=== PATIENT | female | born 1965 | race Caucasian/White ===

== ENCOUNTER 2017-04-09 08:45 | Inpatient (IN) | payer BC ==
[2017-04-07 16:12] VITALS: BMI 46.5
[2017-04-09] MEDS ORDERED: MIDAZOLAM HCL 2 MG/2 ML SINGLE DOSE VIAL ONE (09:52)
[2017-04-09] MEDS ORDERED: BUPIVACAINE HCL/PF 0.5% (5MG/ML) 10 ML VIAL ONE (10:16)
[2017-04-09] MEDS ORDERED: PROPOFOL 20 ML ONE (10:43)
[2017-04-09] MEDS ORDERED: ROCURONIUM BROMIDE 50 MG/5 ML VIAL ONE ×2 (10:43→10:44)
[2017-04-09] MEDS ORDERED: fentaNYL CITRATE 250 MCG/5 ML VIAL ONE (10:43)
[2017-04-09] MEDS ORDERED: KETOROLAC TROMETHAMINE 30 MG/1 ML VIAL ONE (10:44)
[2017-04-09] MEDS ORDERED: SUCCINYLCHOLINE CHLORIDE 200 MG/10 ML VIAL ONE (10:44)
[2017-04-09] MEDS ORDERED: ceFAZolin SODIUM 1 GM VIAL ONE ×2 (10:44)
[2017-04-09] MEDS ORDERED: DEXAMETHASONE SOD PHOSPHATE 4 MG/1 ML VIAL ONE ×2 (10:45→13:29)
[2017-04-09] MEDS ORDERED: ceFAZolin SODIUM 1 GM VIAL IVPB ONE (10:52)
[2017-04-09] MEDS ORDERED: HYDROmorphone HCL/PF 1 MG/ML VIAL (FOR PYXIS CHARGING ONLY) ONE (13:01)
[2017-04-09] MEDS ORDERED: BUPIVACAINE HCL/PF 0.5% (5MG/ML) 10 ML VIAL IJ ONE (13:42)
--- NOTE | 2017-04-09 13:54 | OP ---
Operative Note - Note: Operative Date: 04/09/17 Pre-Operative Diagnosis: Evaluate for leak/obstruction after vertical sleeve gastrectomy Operation: Upper endoscopy/EGD Post-Operative Diagnosis: Other (No leak/obstruction) Surgeon: Jovany Valiente Anesthesia: General Specimens Removed: None Estimated Blood Loss (mls): 0 Operative Report Dictated: Yes
[2017-04-09] MEDS ORDERED: ONDANSETRON 4 MG/2 ML VIAL IVPUSH PRN (13:56)
--- NOTE | 2017-04-09 14:07 | OP ---
Operative Note - Note: Operative Date: 04/09/17 Pre-Operative Diagnosis: Morbid Obesity. Hypertension. Incisional Abdominal Wall Hernia Operation: Laparoscopic Vertical Sleeve Gastrectomy. Repair of Incisional Abdominal Wall Hermia with Mesh. Laparoscopic Lysis of Adhesions. Diagnostic Laparoscopy Findings: Greater Curve Sleeve Gastrectomy performed with #[address] Large 9cm X 6 cm Incisional hernia repaired in LUQ of Abdomen with mesh Implants: 12 cm Symbotex Mesh implanted into LUQ abdominal wall Post-Operative Diagnosis: Same as Pre-op (Abdominal adhesions) Surgeon: Matt Harris Refrigerating Engineer: Jovany Valiente Anesthesia: General Specimens Removed: Greater curve of stomach Estimated Blood Loss (mls): 50 Operative Report Dictated: Yes
[2017-04-09] MEDS ORDERED: HYDROmorphone HCL CARPU-JECT 2 MG/1 ML DISP.SYRIN ONE (14:12)
[2017-04-09] MEDS ORDERED: PROMETHAZINE HCL 25 MG/1 ML VIAL IVPUSH PRN (14:13)
[2017-04-09] MEDS: METOCLOPRAMIDE HCL INJECTION 10 MG/2 ML VIAL IVPUSH SCH ×2 (14:30→20:30)
[2017-04-09] MEDS: HYDROmorphone HCL CARPU-JECT 2 MG/1 ML DISP.SYRIN IVPUSH PRN ×4 (14:45→15:15)
[2017-04-09 14:48] LABS: HEMATOCRIT 39.3 % (32.4-45.2); HEMOGLOBIN 12.5 GM/dL (10.7-15.3); MCHC 31.7 g/dl (32.0-36.0); PLATELET COUNT 275 K/MM3 (134-434); RBC 4.62 M/mm3 (3.60-5.2); RDW 13.7 % (11.6-15.6); WHITE BLOOD COUNT 13.6 K/mm3 (4.0-10.0)
[2017-04-09] MEDS: SODIUM CHLORIDE 1,000 ML IV SCH (15:00)
[2017-04-09 15:32] LABS: ALBUMIN 3.3 g/dl (3.4-5.0); ANION GAP 7 (8-16); BLOOD UREA NITROGEN 11 mg/dL (7-18); CHLORIDE 107 mmol/L (98-107); CO2 25 mmol/L (21-32); GLUCOSE,RANDOM 132 mg/dL (74-106); POTASSIUM 4.3 mmol/L (3.5-5.1); SODIUM 139 mmol/L (136-145)
[2017-04-09 15:37] LABS: ALK PHOS 60 U/L (45-117); BILIRUBIN,TOTAL 0.2 mg/dL (0.2-1.0); CREATININE 0.8 mg/dL (0.55-1.02); SGOT/AST 18 U/L (15-37); SGPT/ALT 25 U/L (12-78); TOT PROT 6.7 g/dl (6.4-8.2)
[2017-04-09] MEDS: LACTATED RINGERS SOLUTION 1,000 ML IV SCH (17:43)
[2017-04-09] MEDS: HYDROmorphone HCL CARPU-JECT 2 MG/1 ML DISP.SYRIN IVPB PRN (20:24)
[2017-04-09] MEDS: ENOXAPARIN NA (PORCINE) 40 MG/0.4 ML DISP.SYRIN SQ SCH (21:49)
[2017-04-09] MEDS ORDERED: FAMOTIDINE 20 MG/50 ML IVPB 50 ML IVPB SCH (22:00)
[2017-04-09] MEDS: FAMOTIDINE IV 20 MG/12 ML VIAL IVPUSH SCH (22:48)
[2017-04-10] MEDS: HYDROmorphone HCL CARPU-JECT 2 MG/1 ML DISP.SYRIN IVPB PRN ×2 (01:51→09:13)
[2017-04-10] MEDS: METOCLOPRAMIDE HCL INJECTION 10 MG/2 ML VIAL IVPUSH SCH ×4 (02:00→21:01)
[2017-04-10] MEDS: SODIUM CHLORIDE 1,000 ML IV SCH ×2 (03:05→16:03)
[2017-04-10 07:50] LABS: HEMATOCRIT 34.7 % (32.4-45.2); HEMOGLOBIN 11.3 GM/dL (10.7-15.3); MCH 27.7 pg (25.7-33.7); MCHC 32.5 g/dl (32.0-36.0); MEAN CELL VOLUME 85.2 fl (80-96); PLATELET COUNT 254 K/MM3 (134-434); RBC 4.08 M/mm3 (3.60-5.2); WHITE BLOOD COUNT 9.9 K/mm3 (4.0-10.0)
[2017-04-10 08:49] LABS: ALBUMIN 2.9 g/dl (3.4-5.0); ANION GAP 7 (8-16); BLOOD UREA NITROGEN 10 mg/dL (7-18); CALCIUM 7.6 mg/dL (8.5-10.1); CHLORIDE 106 mmol/L (98-107); CO2 26 mmol/L (21-32); GLUCOSE,RANDOM 97 mg/dL (74-106); POTASSIUM 3.8 mmol/L (3.5-5.1); SODIUM 139 mmol/L (136-145)
[2017-04-10 08:56] LABS: ALK PHOS 54 U/L (45-117); BILIRUBIN,TOTAL 0.5 mg/dL (0.2-1.0); CREATININE 0.6 mg/dL (0.55-1.02); SGOT/AST 15 U/L (15-37); SGPT/ALT 22 U/L (12-78); TOT PROT 5.9 g/dl (6.4-8.2)
[2017-04-10] MEDS: ENOXAPARIN NA (PORCINE) 40 MG/0.4 ML DISP.SYRIN SQ SCH ×2 (09:25→21:02)
[2017-04-10] MEDS: FAMOTIDINE IV 20 MG/12 ML VIAL IVPUSH SCH ×2 (09:25→21:08)
--- NOTE | 2017-04-10 10:12 | OP ---
DATE OF OPERATION: 04/09/2017 SURGEON: Rossy Valiente MD PREOPERATIVE DIAGNOSIS: Intraoperative endoscopy requested by Dr. Harris to evaluate for leak/obstruction after a vertical sleeve gastrectomy. POSTOPERATIVE DIAGNOSIS: No leak, no obstruction. PROCEDURE: Upper endoscopy/esophagogastroduodenoscopy. SPECIMEN: None. ANESTHESIA: GET. REASONS/PROCEDURE: This is a 51-year-old female who is undergoing a vertical sleeve gastrectomy by Dr. Harris. A request for intraoperative endoscopy to evaluate for leak/obstruction was asked by Dr. Harris. The endoscope was inserted into the patients mouth. The entirety of the esophagus, GE junction, gastric staple line, and gastric pouch was inspected. No leak, no obstruction was noted. The staple line was noted to be fully intact. The stomach was suctioned, and the endoscope removed from the patients mouth. The remainder of the procedure was continued. Please see Dr. Larsen dictation for the vertical sleeve gastrectomy. ROSSY VALIENTE M.D. MUNA/[id number]
--- NOTE | 2017-04-10 10:52 | OP ---
DATE OF OPERATION: 04/09/2017 PREOPERATIVE DIAGNOSIS: 1. Morbid obesity. 2. Hypertension. 3. Incisional abdominal wall hernia. POSTOPERATIVE DIAGNOSIS: 1. Morbid obesity. 2. Hypertension. 3. Incisional abdominal wall hernia. 4. Abdominal adhesion. PROCEDURE PERFORMED: 1. Laparoscopic vertical sleeve gastrectomy. 2. Repair of incisional abdominal wall hernia. 3. Laparoscopic lysis of adhesions. 4. Diagnostic laparoscopy. OPERATING SURGEON: Marlo Duarte MD ASSORTER: Jovany Valiente MD ANESTHESIA: General. OPERATIVE PROCEDURE: The patient was brought into the operating room, placed on the OR table in the supine position. All precautions were taken initially including padding for the back and the feet, and Venodyne boots were placed on both lower extremities. At that point, the abdomen was prepped and draped in the usual manner. The patient had a moderate to large-size incisional hernia from previous surgery in the left upper quadrant. This is usually where the Veress needle would be placed. So, therefore, the Veress needle had to be placed to the right of the umbilicus. Once the Veress needle was placed into the abdomen, a pneumoperitoneum was established. A No. 5 bladeless trocar was then placed in that area just to the right of the umbilicus and one under direct vision in order to prevent any possible injury to intraabdominal organs. The No. 5 trocar was introduced under direct vision, and a camera was placed through the No. 5 trocar. Under direct vision, then, a No. 5 bladeless trocar was placed in the right upper quadrant. There was noted a large amount of adhesions, looked like omentum, in the area of the incisional hernia in the left upper quadrant. This needed to be dissected free, so that further visualization would be provided for the sleeve gastrectomy to be performed. Therefore, a No. 15 bladeless trocar was placed just below the umbilicus in the midline. Now with 2 working points and the camera, the LigaSure device was used to dissect the adhesions between the hernia, the hernia sac, and the omentum. These adhesions were lysed mostly right on the rim of the hernia sac in the left upper quadrant. This was done in a circumferential direction until all the adhesions were removed, and the omentum was then reduced from the hernia and placed back into the abdominal cavity. At this point, visualization showed nothing in the hernia sac. So, therefore, after sleeve gastrectomy, the hernia would be repaired at that time. Now, with full vision of the upper abdomen, a No. 5 bladeless trocar was placed below the left costal margin, and a No. 5 bladeless trocar in the left upper quadrant right by the hernia. At this juncture, a Lb Liver Retractor was then placed in the epigastrium to retract the left lobe of the liver. The patient was then placed in 20-degree reverse Trendelenburg position, and the pylorus was noted on the distal stomach. Then, 6 cm were measured proximally, and here on the greater curve, the operating surgeon lifted the stomach towards the anterior abdominal wall, and the economic research assistant surgeon retracted the gastrocolic ligament inferiorly. Once again, the LigaSure device was used to dissect the gastrocolic ligament off the greater curve of the stomach. This continued in a superior and vertical direction until a final short gastric vessel between the superior pole of the spleen and proximal fundus was divided. At this juncture, Anesthesia advanced a No. [address] into the distal stomach. With the bougie held along the lesser curve of the stomach, a series of argelia was performed, the first two being black argelia, 6 cm in length, along the bougie. This was followed by a series of purple argelia until the final staple was fired in the left upper quadrant, and the greater curve was now completely detached from the lesser curve. It should be noted that prior to firing each staple, both the anterior and posterior wall was checked that they intact and in the area of the esophagogastric junction. Approximately 1 cm serosa remained on the anterior and posterior surfaces. At this juncture, in order to test the argelia and make sure they were water- and air tight, the economic research assistant surgeon, Dr. Valiente, performed an upper endoscopy. The details will be described in his procedure note, but essentially, there were no signs of any leaks from the staple line, and the endoscopy was introduced all the way into the distal stomach towards the pylorus showing no signs of obstruction. At this juncture, Surgicel was placed over the left upper quadrant between spleen and the resected stomach and also along parts of the staple line. At this point, attention was now directed back to the hernia. A 12-cm circular Symbotex mesh was placed with the No. 15 trocar and then laid out over the hernia. A series of absorbable tacks were then placed all around, and this was able to hold the mesh in place. However, because there were some edges that were slightly off the fascia, it was decided to further reinforce it. Therefore, on all 4 sides, at 12 o'clock, 3 o'clock, 6 o'clock, and 9 o'clock, an 0 Prolene suture was placed with a spinal needle into the abdomen and then brought back up, and this was used to tie the mesh down to the fascia from above. At this point, all trocar sites were removed from the abdominal cavity, and the pneumoperitoneum was released. The No. 15 trocar just below the umbilicus, that site was closed with 0 Vicryl in 1 suture interrupted to close the midline fascia. At this point, all trocar sites received 0.25% Marcaine, were closed with 4-0 Biosyn in subcuticular fashion. Dressings were applied. Patient awoke from anesthesia and transferred out of the operating room to the recovery room in stable condition. ANESTHESIA: General. SURGEON: Marlo Duarte MD ASSORTER: Jovany Valiente MD EXPECTED BLOOD LOSS: 50 mL. Patient transferred to the recovery room in stable condition. MARLO DUARTE M.D. JASMINE/[id number]
--- NOTE | 2017-04-10 11:17 | CON.CARD ---
Consult Consult Specialty:: Cardiology Referred by:: Dr. Harris Reason for Consultation:: Chest pain - History of Present Illness Chief Complaint: chest pain History of Present Illness: 51F w/ HTN, HL, borderline DM, multpiple prior surgeries including tubal ligation, freida, left adrenal cystectomy, myomectomy, thyroidectomy c/p epigastric pain last evening s/p bariatric surgery and abdominal wall repair laparoscopically. ECG showed no acute changes. The discomfort feels like "gas" Denies SOB No palps. Usual ET is unlimited, except for her chronic PERALTA. Cardiac enzymes are negative x 2. - History Source History Provided By: Patient, Medical Record - Past Medical History Cardio/Vascular: Yes: HTN Pulmonary: No: Asthma, Bronchitis, Cancer, COPD, O2 Dependent, Pneumonia, Previously Intubated, Pulmonary Embolus, Pulmonary Fibrosis, Sleep Apnea, Other Gastrointestinal: No: Ascites, Cancer, Constipation, Crohn's Disease, Diverticulitis, Diverticulosis, Esophageal Varices, Gastritis, GERD, GI Bleed, Hemorrhoids, Hiatal Hernia, Inflamatory Bowel Disease, Irritable Bowel Disease, Pancreatitis, Peptic Ulcer Disease, Ulcerative Colitis, Other Hepatobiliary: No: Cirrhosis, Cholelithiasis, Cholecystitis, Choledocholithiasis , Hepatitis A, Hepatitis B, Hepatitis C, Other ...LMP: 04/07/17 Endocrine: Yes: Hypothyroidism Additional Medical History: as above - Alcohol/Substance Use Hx Alcohol Use: (rarely) - Smoking History Smoking history: Former smoker Have you smoked in the past 12 months: No If you are a former smoker, when did you quit?: 20 years ago - Social History Usual Living Arrangement: With Spouse 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 Home Medications - Allergies Allergies/Adverse Reactions: Allergies Allergy/AdvReac Type Severity Reaction Status Date / Time No Known Drug Allergies Allergy Verified 04/09/17 09:25 - Home Medications Home Medications: Ambulatory Orders Cholecalciferol (Vitamin D3) [Vitamin D-3] 2,000 unit PO DAILY 04/04/15 Cyanocobalamin [Vitamin B12 -] 2,000 mcg SL DAILY 04/04/15 Losartan Potassium [Cozaar -] 50 mg PO DAILY 04/04/15 Levothyroxine [Synthroid -] 50 mcg PO DAILY 04/07/17 Famotidine [Pepcid] 20 mg PO BID #60 tablet 04/09/17 Oxycodone HCl/Acetaminophen [Percocet 5-325 mg Tablet] 1 tab PO Q6H PRN #20 tablet MDD 4 04/09/17 Family Disease History - Family Disease History Family History: Unremarkable (mother had CHF, later in life) Review of Systems Findings/Remarks: SEE HPI - Review of Systems Constitutional: reports: No Symptoms Eyes: reports: No Symptoms HENT: reports: No Symptoms Neck: reports: No Symptoms Cardiovascular: reports: Other (epigastric and sternal pain) Respiratory: reports: No Symptoms Gastrointestinal: reports: Abdominal Pain, Bloating Genitourinary: reports: No Symptoms Breasts: reports: No Symptoms Reported Musculoskeletal: reports: No Symptoms Integumentary: reports: No Symptoms Neurological: reports: No Symptoms Endocrine: reports: No Symptoms Hematology/Lymphatic: reports: No Symptoms Psychiatric: reports: No Symptoms - Risk Factors Known Risk Factors: Yes: Hypertension Vital Signs: Vital Signs Temperature 98.4 F 04/10/17 08:00 Pulse Rate 96 H 04/10/17 08:00 Respiratory Rate 16 04/10/17 08:00 Blood Pressure 162/92 04/10/17 08:00 O2 Sat by Pulse Oximetry (%) 98 04/09/17 21:00 Constitutional: Yes: No Distress Eyes: Yes: Conjunctiva Clear Respiratory: Yes: Regular, CTA Bilaterally Gastrointestinal: Yes: Soft (no rebound or guarding) Cardiovascular: Yes: Regular Rate and Rhythm JVD: No Carotid Bruit: No PMI: Non-Displaced Heart Sounds: Yes: S1, S2 (RRR, no murmurs) Edema: No Peripheral Pulses WNL: Yes Neurological: Yes: Alert, Oriented ...Motor Strength: WNL - Other Data Labs, Other Data: CBC, BMP 04/10/17 06:30 04/10/17 05:05 Troponin, BNP 04/09/17 04/10/17 04/10/17 19:45 05:05 05:05 Troponin I < 0.02 < 0.02 Cancelled Troponin, BNP 04/09/17 04/10/17 04/10/17 19:45 05:05 05:05 Troponin I < 0.02 < 0.02 Cancelled Laboratory Tests 04/09/17 04/10/17 04/10/17 19:45 05:05 06:30 WBC 9.9 Hgb 11.3 Plt Count 254 Sodium 139 Potassium 3.8 Creatinine 0.6 D Troponin I < 0.02 < 0.02 NSR 84 bpm, NSST Echo: Pending Ejection Fraction %: LVEF > or = 40 % Imaging - Results EKG: Image Reviewed Problem List - Problems (1) Non-cardiac chest pain Assessment/Plan: -Do not suspect her chest discomfort was cardiac in nature -She is likely experiencing some degree of discomfort referred from the abdominal surgery and some tightness from the air from insufflation of abdomen -Cardiac enzymes are negative, no tachycardia , dyspnea or desaturation to suggest PE -Will obtain echo to assess EF Code(s): R07.89 - OTHER CHEST PAIN (2) Bariatric surgery status Assessment/Plan: -Post op care as per surgery Code(s): Z98.84 - BARIATRIC SURGERY STATUS (3) Hypertension Assessment/Plan: -At times mildly above goal, probably due to normal post op pain -Can resume usual home dose of Losartan 50mg daily when tolerating PO Code(s): I10 - ESSENTIAL (PRIMARY) HYPERTENSION Qualifiers: Hypertension type: essential hypertension Qualified Code(s): I10 - Essential (primary) hypertension
[2017-04-10] MEDS ORDERED: oxyCODONE HCL 5 MG TABLET PO PRN (14:20)
[2017-04-10] MEDS ORDERED: ACETAMINOPHEN 325 MG TABLET (FP) PO PRN (14:21)
[2017-04-10] MEDS ORDERED: SODIUM CHLORIDE 1,000 ML IV SCH (14:30)
--- NOTE | 2017-04-10 14:36 | PN ---
Progress Note (short form) - Note Progress Note: pt day #1 s/p gastric sleeve sx. Doing well, ambulating, some mild discomfort but otherwise fine. Continue current mgmt
[2017-04-10] MEDS: LEVOTHYROXINE NA 50 MCG TABLET (FP) PO SCH (15:30)
--- NOTE | 2017-04-10 15:58 | PN ---
Progress Note (short form) - Note Progress Note: POD#1 Afebrile; VSS Pt doing better Had epigastric discomfort yesterday Cardiology consultation appreciated Echo WNL Pt ambulating, c/o "gas" discomfort No N/V Tolerating PO clear liquids- 2 oz po tid WBC-9.9 H/H-11.3/34.7 P/E- Abd- all trocar sites clean, dry Ext- no edema, no swelling, no tenderness UGI- no leak, no obstruction P- PO clear liquids- 2oz po tid, advance to 3 oz tomorrow Cont DVT prophylaxis Encourage OOB, ambulate , incentive spirometer
[2017-04-10] MEDS: LACTATED RINGERS SOLUTION 1,000 ML IV SCH (16:03)
[2017-04-10] MEDS: LOSARTAN POTASSIUM 50 MG TABLET (FP) PO SCH (16:05)
[2017-04-11] MEDS: METOCLOPRAMIDE HCL INJECTION 10 MG/2 ML VIAL IVPUSH SCH ×2 (03:19→10:25)
[2017-04-11] MEDS: LEVOTHYROXINE NA 50 MCG TABLET (FP) PO SCH (06:24)
[2017-04-11] MEDS: FAMOTIDINE IV 20 MG/12 ML VIAL IVPUSH SCH (10:24)
[2017-04-11] MEDS: ENOXAPARIN NA (PORCINE) 40 MG/0.4 ML DISP.SYRIN SQ SCH (10:25)
[2017-04-11] MEDS: LOSARTAN POTASSIUM 50 MG TABLET (FP) PO SCH (10:25)
--- NOTE | 2017-04-11 12:33 | PN ---
Progress Note (short form) - Note Progress Note: POD#2 Afebrile; VSS P-89-96 Pt tolerating po clear liquids- 3 oz po TID No N/V C/O slight cramping discomfort LUQ (area of hernia repair) P/E- Abd- trocar incisions clean, dry Ext- no swelling, non-tender on palpation P- D/C pt home PO diet instructions given Encouraged pt to moss picker OTC GAs-X or Mylicon F/U- 5 days
--- NOTE | 2017-04-11 12:38 | PN ---
Progress Note, Physician Chief Complaint: Pt OOB in chair; no chest pain or dyspnea; mild abdominal discomfort. Pt's is at bedside. History of Present Illness: 51F w/ HTN, HL, borderline DM, multpiple prior surgeries including morbid obesity, tubal ligation, freida, left adrenal cystectomy, myomectomy, thyroidectomy c/p epigastric pain last evening s/p bariatric surgery and abdominal wall repair laparoscopically. ECG showed no acute changes. The discomfort feels like "gas" Denies SOB No palps. Usual ET is unlimited, except for her chronic PERATLA. Cardiac enzymes are negative x 2. - Current Medication List Current Medications: Active Medications Acetaminophen (Tylenol -) 325 mg PO Q4H PRN PRN Reason: FEVER OR PAIN Last Admin: 04/11/17 11:59 Dose: 325 mg Enoxaparin Sodium (Lovenox -) 40 mg SQ BID [facility] Last Admin: 04/11/17 10:25 Dose: 40 mg Sodium Chloride (Normal Saline -) 1,000 mls @ 150 mls/hr IV ASDIR [facility] Last Admin: 04/10/17 16:03 Dose: Not Given Lactated Ringer's (Lactated Ringers Solution) 1,000 mls @ 75 mls/hr IV ASDIR [facility] Last Admin: 04/10/17 16:03 Dose: Not Given Famotidine (Pepcid 20 Mg/12 Ml Push) 20 mg in 12 mls @ 144 mls/hr IVPUSH BID [facility] Last Admin: 04/11/17 10:24 Dose: 144 mls/hr Sodium Chloride (Normal Saline -) 1,000 mls @ 50 mls/hr IV ASDIR [facility] Last Admin: 04/10/17 14:30 Dose: 50 mls/hr Levothyroxine Sodium (Synthroid -) 50 mcg PO DAILY@0700 [facility] Last Admin: 04/11/17 06:24 Dose: 50 mcg Losartan Potassium (Cozaar -) 50 mg PO DAILY [facility] Last Admin: 04/11/17 10:25 Dose: 50 mg Metoclopramide HCl (Reglan Injection -) 10 mg IVPUSH Q6H-IV ALLEN Last Admin: 04/11/17 10:25 Dose: 10 mg Ondansetron HCl (Zofran Injection) 4 mg IVPUSH Q4H PRN PRN Reason: NAUSEA AND/OR VOMITING Oxycodone HCl (Roxicodone -) 5 mg PO Q4H PRN PRN Reason: PAIN Last Admin: 04/11/17 11:58 Dose: 5 mg Promethazine HCl (Phenergan Injection -) 12.5 mg IVPUSH Q6H PRN PRN Reason: NAUSEA-FOR RESCUE AFTER 15 MIN Last Admin: 04/09/17 14:14 Dose: 12.5 mg - Objective Vital Signs: Vital Signs Temperature 99.2 F 04/11/17 06:00 Pulse Rate 89 04/11/17 06:00 Respiratory Rate 18 04/11/17 06:00 Blood Pressure 163/94 04/11/17 06:00 O2 Sat by Pulse Oximetry (%) 96 04/10/17 20:25 Constitutional: Yes: Well Nourished, Anxious Eyes: Yes: WNL HENT: Yes: WNL Neck: Yes: WNL Cardiovascular: Yes: WNL, Regular Rate and Rhythm Respiratory: Yes: WNL Gastrointestinal: Yes: Soft, Tenderness (mild) ...Rectal Exam: Yes: Deferred Genitourinary: No: Anuria Breast(s): Yes: WNL Musculoskeletal: Yes: WNL Extremities: Yes: WNL Edema: No Peripheral Pulses WNL: Yes Integumentary: Yes: WNL Neurological: Yes: WNL Psychiatric: Yes: Other (anxiety) Labs: CBC, BMP 04/10/17 06:30 04/10/17 05:05 - ....Imaging Other: Image Reviewed (telemetry: NSR; no arrythmias.periods of sinus tachycardia) Problem List - Problems (1) Bariatric surgery status Assessment/Plan: seen by surgeon. Code(s): Z98.84 - BARIATRIC SURGERY STATUS (2) Hypertension Assessment/Plan: Continue antihypertensives (restart losartan). Pain management is harrell. Code(s): I10 - ESSENTIAL (PRIMARY) HYPERTENSION Qualifiers: Hypertension type: essential hypertension Qualified Code(s): I10 - Essential (primary) hypertension (3) Non-cardiac chest pain Assessment/Plan: TNI < 0.02 x 2 EKG: NSR; no acute changes. Code(s): R07.89 - OTHER CHEST PAIN (4) S/P myomectomy Code(s): Z98.89 - OTHER SPECIFIED POSTPROCEDURAL STATES * DO NOT USE *
[2017-04-11 13:17] VITALS: BP 163/101; TEMP 98.3
[2017-04-11 13:18] VITALS: PULSE 88
--- NOTE | 2017-04-14 14:57 | PATH ---
Surgical Pathology Report Patient Name: ELSY MARIE [facility]. Rec. #: [id number] /Age/Gender: 1965 (Age: 51) / F Account: [id number] Location: 4 W TELEMETRY U Taken: 04/09/2017 Received: 04/10/2017 Reported: 04/14/2017 Physicians: Matt Harris M.D. Specimen(s) Received GREATER CURVATURE OF STOMACH Clinical History Morbid obesity Final Diagnosis STOMACH, GREATER CURVATURE, LAPAROSCOPIC VERTICAL SLEEVE GASTRECTOMY: PORTION OF STOMACH WITH MILD CHRONIC GASTRITIS. IMMUNOHISTOCHEMICAL STAIN FOR H. PYLORI IS POSITIVE (FEW). Electronically Signed Kate Alvarez M.D. Gross Description Received in formalin, labeled "greater curvature of the stomach," is a 102 gram, 15.0 x 3.5 x 3.0 cm. portion of stomach with a stapled margin of resection. The serosa is haines-myers with minimal attached fat. The mucosa is haines-pink with normal folds. No mucosal masses are identified. There is an additional 1.2 x 1.0 x 0.8 cm portion of stomach with a stapled margin separately received within the same container. No definitive lesion is identified. Meat Packer sections are submitted in 2 cassettes as follows: 1-field representatives director sections of stomach; 2-separately received smaller portion of stomach. 04/10/201704/10/2017
--- NOTE | 2017-04-18 11:23 | EKG ---
Test Reason : Blood Pressure : / mmHG Vent. Rate : 084 BPM Atrial Rate : 084 BPM P-R Int : 154 ms QRS Dur : 084 ms QT Int : 382 ms P-R-T Axes : 061 022 026 degrees QTc Int : 451 ms NORMAL SINUS RHYTHM NORMAL ECG WHEN COMPARED WITH ECG OF 08-JAN-2017 11:44, NO SIGNIFICANT CHANGE WAS FOUND Confirmed by GARFIELD HERNANDEZ MD ([id number]) on 04/18/2017 11:22:59 AM Referred By: Matt Harris Confirmed By:GARFIELD HERNANDEZ MD
== END 2017-04-11 13:19 | disposition home or self-care (01) | DRG 621 ==
LOC: JSAMEDAYSX 08:45 → EDSTATUS 15:00 → J4W 16:53
PROVIDERS: ADMIT Surgery; ATTEND Surgery
PROC: 0DNW4ZZ Release Peritoneum, Percutaneous Endoscopic Approach (ICD-10-PCS; 2017-04-09)
PROC: 0DJ08ZZ Inspection of Upper Intestinal Tract, Via Natural or Artificial Opening Endoscopic (ICD-10-PCS; 2017-04-09)
PROC: 0DB64Z3 Excision of Stomach, Percutaneous Endoscopic Approach, Vertical (ICD-10-PCS; principal; 2017-04-09 10:00)
PROC: 0WQF4ZZ Repair Abdominal Wall, Percutaneous Endoscopic Approach (ICD-10-PCS; 2017-04-09 10:00)
DX: E66.01 Morbid (severe) obesity due to excess calories (principal); Z68.42 Body mass index [BMI] 45.0-49.9, adult; I10 Essential (primary) hypertension; K43.2 Incisional hernia without obstruction or gangrene; K66.0 Peritoneal adhesions (postprocedural) (postinfection); E78.5 Hyperlipidemia, unspecified; R73.03 Prediabetes; R07.89 Other chest pain; E03.9 Hypothyroidism, unspecified; Z87.891 Personal history of nicotine dependence
CPT/HCPCS: 36415; 74241-TC; 80053; 82550; 82553; 84484; 84703; 85027; 86850; 86900; 86901; 88307-TC; 93005; 93010; 93306-TC; 94760

== ENCOUNTER 2018-07-28 09:15 | Day surgery (SDC) | payer BC ==
[2018-07-26 15:34] VITALS: BMI 31.0
[2018-07-28] MEDS ORDERED: PROPOFOL 20 ML ONE ×2 (09:17)
[2018-07-28 11:47] VITALS: TEMP 97.9
[2018-07-28 11:49] VITALS: BP 121/68; PULSE 57
--- NOTE | 2018-07-30 17:40 | PATH ---
Surgical Pathology Report Patient Name: ELSY MARIE [facility]. Rec. #: [id number] /Age/Gender: 1965 (Age: 52) / F Account: [id number] Location: [facility] Taken: 07/28/2018 Received: 07/28/2018 Reported: 07/30/2018 Physicians: Kate Wilcox M.D. Specimen(s) Received A: BX SECOND PORTION DUODENUM B: BX GASTRICANTRUM C: BX GE JUNCTION Clinical History GERD Postoperative diagnosis: Gastritis Final Diagnosis A. SECOND PORTION DUODENUM, BIOPSY: DUODENUM MUCOSA WITH MILD NONSPECIFIC CHRONIC DUODENITIS. NO HISTOLOGIC EVIDENCE OF CELIAC DISEASE. B. GASTRIC ANTRUM, BIOPSY: GASTRIC MUCOSA WITH ACTIVE CHRONIC GASTRITIS. IMMUNOSTAIN FOR H. PYLORI IS NEGATIVE. NEGATIVE FOR INTESTINAL METAPLASIA. C. GE JUNCTION, BIOPSY: COLUMNAR (GASTRIC) MUCOSA WITH NO SIGNIFICANT PATHOLOGIC CHANGES. NEGATIVE FOR INTESTINAL METAPLASIA. Electronically Signed Johana Moran M.D. Gross Description A. Received in formalin, labeled "biopsy second portion of duodenum" is a haines, irregular portion of soft tissue measuring 0.3 cm. in greatest dimension. The specimen is submitted in toto in one cassette. B. Received in formalin, labeled "biopsy gastric antrum" are 2 haines, irregular portions of soft tissue averaging 0.3 cm. in greatest dimension. The specimens are submitted in toto in one cassette. C. Received in formalin, labeled "biopsy GE junction" is a haines, irregular portion of soft tissue measuring 0.3 cm. in greatest dimension. The specimen is submitted in toto in one cassette. 07/29/2018 saudi07/29/2018
== END 2018-07-28 11:49 | disposition home or self-care (01) ==
LOC: FASU-ENDO 09:15
PROVIDERS: ATTEND Internal Medicine Gastroenterology
PROC: 0DB48ZX Excision of Esophagogastric Junction, Via Natural or Artificial Opening Endoscopic, Diagnostic (ICD-10-PCS; 2018-07-28)
PROC: 0DB98ZX Excision of Duodenum, Via Natural or Artificial Opening Endoscopic, Diagnostic (ICD-10-PCS; principal; 2018-07-28 10:50)
PROC: 0DB68ZX Excision of Stomach, Via Natural or Artificial Opening Endoscopic, Diagnostic (ICD-10-PCS; 2018-07-28 10:50)
DX: K29.50 Unspecified chronic gastritis without bleeding (principal); K29.80 Duodenitis without bleeding; R10.9 Unspecified abdominal pain
CPT/HCPCS: 84703; 88305-TC; 88342-TC

== ENCOUNTER 2018-09-01 11:15 | Day surgery (SDC) | payer BC ==
[2018-08-31 12:06] VITALS: BMI 31.0
[2018-09-01] MEDS ORDERED: PROPOFOL 20 ML ONE ×2 (11:18→13:03)
[2018-09-01 14:18] VITALS: BP 141/77; PULSE 78; TEMP 97.9
--- NOTE | 2018-09-03 15:28 | PATH ---
Surgical Pathology Report Patient Name: ELSY MARIE [facility]. Rec. #: [id number] /Age/Gender: 1965 (Age: 52) / F Account: [id number] Location: [facility] Taken: 09/01/2018 Received: 09/01/2018 Reported: 09/03/2018 Physicians: Kate Wilcox M.D. Specimen(s) Received A: BX RANDOM RIGHT COLON B: HOT SNARE POLYPECTOMY ASCENDING COLON C: BX RANDOM TRANSVERSE COLON D: BX RANDOM DESCENDING COLON Clinical History Diarrhea. Postoperative diagnosis: Polyps, rule out microscopic colitis Final Diagnosis A. RANDOM RIGHT COLON, BIOPSY: COLONIC MUCOSA SHOWING BENIGN/REACTIVE LYMPHOID AGGREGATE. NO EVIDENCE OF MICROSCOPIC COLITIS. B. ASCENDING COLON, POLYP, HOT SNARE POLYPECTOMY: TUBULAR ADENOMA. C. RANDOM TRANSVERSE COLON, BIOPSY: COLONIC MUCOSA WITH NO PATHOLOGIC FINDINGS. NO EVIDENCE OF MICROSCOPIC COLITIS. D. RANDOM DESCENDING COLON, BIOPSY: COLONIC MUCOSA WITH NO PATHOLOGIC FINDINGS. NO EVIDENCE OF MICROSCOPIC COLITIS. Electronically Signed Mckenzie Lemon M.D. Gross Description A. Received in formalin, labeled "random right colon" is one piece of haines tissue measuring 0.4 cm in greatest dimension. Entirely submitted in one cassette. B. Received in formalin, labeled "hot snare polypectomy ascending colon" is a 0.8 x 0.5 x 0.3 cm dark haines polyp. The base of the polyp is inked blue and the polyp is bisected. Also present is a 1 x 0.8 x 0.2 cm aggregate of light haines tissue. Entirely submitted in two cassettes as follows: 1- bisected polyp; 2-remaining tissue. C. Received in formalin, labeled, "random transverse colon" are two pieces of haines tissue each up to 0.2 cm in greatest dimension. Entirely submitted in one cassette. D. Received in formalin, labeled, "random descending colon" is one piece of haines tissue measuring 0.2 cm in greatest dimension. Entirely submitted in one cassette AE/09/02/2018 ebram/09/02/2018
== END 2018-09-01 14:15 | disposition home or self-care (01) ==
LOC: FASU-ENDO 11:15
PROVIDERS: ATTEND Internal Medicine Gastroenterology
PROC: 0DBK8ZX Excision of Ascending Colon, Via Natural or Artificial Opening Endoscopic, Diagnostic (ICD-10-PCS; 2018-09-01)
PROC: 0DBL8ZX Excision of Transverse Colon, Via Natural or Artificial Opening Endoscopic, Diagnostic (ICD-10-PCS; 2018-09-01)
PROC: 0DBM8ZX Excision of Descending Colon, Via Natural or Artificial Opening Endoscopic, Diagnostic (ICD-10-PCS; 2018-09-01)
PROC: 0DBK8ZX Excision of Ascending Colon, Via Natural or Artificial Opening Endoscopic, Diagnostic (ICD-10-PCS; principal; 2018-09-01 12:51)
DX: D12.2 Benign neoplasm of ascending colon (principal); K64.0 First degree hemorrhoids; R19.7 Diarrhea, unspecified
CPT/HCPCS: 88305-TC

== ENCOUNTER 2020-04-06 11:50 | Emergency (ER) | payer BC | END 2020-04-06 16:11 | disposition home or self-care (01) | LOC: JVIRT 11:50 | DX: Z11.59 Encounter for screening for other viral diseases (principal) | CPT/HCPCS: C9803; Q3014-GT; U0003 ==

== ENCOUNTER 2020-06-08 04:30 | Day surgery (SDC) | payer BC ==
[2020-06-05 12:49] VITALS: BMI 34.8
[2020-06-08] MEDS ORDERED: LIDOCAINE HCL 1%, 10 MG/ML (20ML VIAL) ONE (07:25)
[2020-06-08] MEDS ORDERED: DEXAMETHASONE SOD PHOSPHATE 4 MG/1 ML VIAL ONE ×2 (07:25→07:27)
[2020-06-08] MEDS ORDERED: LIDOCAINE HCL/PF 2% SDV 5ML VIAL ONE (07:27)
[2020-06-08] MEDS ORDERED: ceFAZolin SODIUM 1 GM VIAL ONE (07:27)
[2020-06-08] MEDS ORDERED: LIDOCAINE HCL 2% JELLY (5 ML/TUBE) ONE (07:27)
[2020-06-08] MEDS ORDERED: MIDAZOLAM HCL 2 MG/2 ML SINGLE DOSE VIAL ONE (07:27)
[2020-06-08] MEDS ORDERED: PROPOFOL 20 ML ONE ×5 (07:27→08:14)
[2020-06-08] MEDS ORDERED: ceFAZolin SODIUM 1 GM VIAL IVPB ONE (07:50)
[2020-06-08] MEDS ORDERED: LIDOCAINE HCL 1%, 10 MG/ML (50 mL VIAL) INF ONE (07:52)
[2020-06-08] MEDS ORDERED: BUPIVACAINE HCL/PF 0.5% (5MG/ML) 10 ML VIAL IJ ONE ×2 (07:52→08:32)
[2020-06-08] MEDS ORDERED: DEXAMETHASONE SOD PHOSPHATE 4 MG/1 ML VIAL NR ONE (08:32)
[2020-06-08 09:37] VITALS: TEMP 97.5
[2020-06-08 10:33] VITALS: BP 135/88; PULSE 61
== END 2020-06-08 11:05 | disposition home or self-care (01) ==
LOC: JASU-SURG 04:30
PROVIDERS: ATTEND Podiatrist Foot Surgery
PROC: 0QSN04Z Reposition Right Metatarsal with Internal Fixation Device, Open Approach (ICD-10-PCS; principal; 2020-06-08 07:30)
DX: M20.11 Hallux valgus (acquired), right foot (principal)
CPT/HCPCS: 73630-TC-RT-FY; 81025; 88304-TC; 88311-TC

== ENCOUNTER 2020-06-29 04:28 | Day surgery (SDC) | payer BC ==
[2020-06-25 21:37] VITALS: BMI 34.0
[~2020-06-29 04:28] MED LIST: DEXAMETHASONE SOD PHOSPHATE 4 MG/1 ML VIAL IM ONE
[2020-06-29] MEDS ORDERED: LIDOCAINE HCL 1%, 10 MG/ML (20ML VIAL) ONE (08:37)
[2020-06-29] MEDS ORDERED: DEXAMETHASONE SOD PHOSPHATE 4 MG/1 ML VIAL ONE ×2 (08:37→10:17)
[2020-06-29] MEDS ORDERED: PROPOFOL 20 ML ONE (09:17)
[2020-06-29] MEDS ORDERED: MIDAZOLAM HCL 2 MG/2 ML SINGLE DOSE VIAL ONE (09:17)
[2020-06-29] MEDS ORDERED: ceFAZolin SODIUM 1 GM VIAL IVPB ONE (09:20)
[2020-06-29] MEDS ORDERED: ceFAZolin SODIUM 1 GM VIAL ONE (09:22)
[2020-06-29] MEDS ORDERED: LIDOCAINE HCL 1%, 10 MG/ML (20ML VIAL) INF ONE (09:39)
[2020-06-29] MEDS ORDERED: BUPIVACAINE HCL/PF 0.5% (5 MG/ML) 30 ML VIAL IJ ONE (09:41)
[2020-06-29] MEDS ORDERED: KETOROLAC TROMETHAMINE 30 MG/1 ML VIAL ONE (10:17)
[2020-06-29] MEDS ORDERED: BENZOIN/ALOE VERA/STORAX/TOLU 58 ML BOTTLE ONE (10:24)
[2020-06-29] MEDS ORDERED: ONDANSETRON 4 MG/2 ML VIAL IVPUSH PRN (11:12)
[2020-06-29] MEDS ORDERED: oxyCODONE HCL 5 MG TABLET PO PRN ×2 (11:12)
[2020-06-29] MEDS ORDERED: LACTATED RINGERS SOLUTION 1,000 ML IV SCH (11:15)
[2020-06-29 11:25] VITALS: TEMP 98.3
[2020-06-29 13:27] VITALS: BP 121/73; PULSE 55
== END 2020-06-29 12:30 | disposition home or self-care (01) ==
LOC: JASU-SURG 04:28
PROVIDERS: ATTEND Podiatrist Foot Surgery
PROC: 0QSP04Z Reposition Left Metatarsal with Internal Fixation Device, Open Approach (ICD-10-PCS; principal; 2020-06-29 08:30)
DX: M20.12 Hallux valgus (acquired), left foot (principal)
CPT/HCPCS: 73630-TC-LT; 81025; 88304-TC; 88311-TC; 94760

== ENCOUNTER 2021-09-06 09:23 | Emergency (ER) | payer BC ==
[2021-09-06 09:28] VITALS: BMI 34.9
[2021-09-06] MEDS ORDERED: BEBTELOVIMAB (EUA) 175 MG/2 ML VIAL IVPUSH ONE (10:13)
[2021-09-06 12:01] VITALS: BP 128/75; PULSE 76; TEMP 98.5
[2021-09-06] MEDS ORDERED: ACETAMINOPHEN 325 MG TABLET (FP) PO ONE (12:05)
[2021-09-06] MEDS ORDERED: ACETAMINOPHEN 325 MG TABLET (FP) ONE (12:16)
== END 2021-09-06 12:20 | disposition home or self-care (01) ==
LOC: JER 09:23 → SUPCPDRO 09:23 → JER 12:20
DX: U07.1 COVID-19 (principal); I10 Essential (primary) hypertension
CPT/HCPCS: 99284-25; Q0222

== ENCOUNTER 2022-03-07 08:06 | Day surgery (SDC) | payer BC ==
[2022-03-04 16:31] VITALS: BMI 34.0
[2022-03-07 08:27] VITALS: RESP 18
[2022-03-07] MEDS ORDERED: PROPOFOL 20 ML ONE (09:33)
[2022-03-07 10:41] VITALS: BP 110/65; PULSE 78; TEMP 98
== END 2022-03-07 11:02 | disposition home or self-care (01) ==
LOC: FASU-ENDO 08:06
PROVIDERS: ATTEND Internal Medicine Gastroenterology
PROC: 0DJD8ZZ Inspection of Lower Intestinal Tract, Via Natural or Artificial Opening Endoscopic (ICD-10-PCS; principal; 2022-03-07 09:27)
DX: Z12.11 Encounter for screening for malignant neoplasm of colon (principal); Z86.010 Personal history of colon polyps; K57.30 Diverticulosis of large intestine without perforation or abscess without bleeding
CPT/HCPCS: 84703

== ENCOUNTER 2022-07-24 05:03 | Emergency (ER) | payer BC ==
[2022-07-24] MEDS ORDERED: SODIUM CHLORIDE 1,000 ML IV ONE (05:14)
[2022-07-24 05:30] VITALS: BMI 34.7
[2022-07-24 06:30] LABS: EPI CELLS 16 /uL (0-25.1); HYALINE CASTS 8 /uL (0-3.1); PH,URINE >= 9.0 (5.0-8.0); URINE APPEARANCE CLOUDY; URINE BACTERIA 208 /uL (0-1359); URINE BILIRUBIN NEGATIVE (NEGATIVE); URINE COLOR YELLOW; URINE GLUCOSE (UA) NEGATIVE (NEGATIVE); URINE KETONE NEGATIVE (NEGATIVE); URINE LEUK ESTERASE TRACE (NEGATIVE); URINE NITRITE NEGATIVE (NEGATIVE); URINE PROTEIN 1+ (NEGATIVE); URINE RBC 29 /uL (0-23.9); URINE UROBILINOGEN 0.2 mg/dL (0.2-1.0); URINE WBC 291 /uL (0-25.8)
[2022-07-24 06:36] LABS: INR 1.07 (0.83-1.09); PROTHROMBIN TIME (PATIENT) 12.4 SEC (9.7-13.0)
[2022-07-24 06:45] LABS: HEMATOCRIT 37.8 % (32.4-45.2); HEMOGLOBIN 12.6 GM/dL (10.7-15.3); MCH 26.4 pg (25.7-33.7); MCHC 33.4 g/dl (32.0-36.0); MEAN CELL VOLUME 79.1 fl (80-96); MEAN PLT VOLUME 8.6 fl (7.5-11.1); PLATELET COUNT 242 10^3/uL (134-434); RBC 4.78 M/mm3 (3.60-5.2); RDW 14.9 % (11.6-15.6); WHITE BLOOD COUNT 8.2 K/mm3 (4.0-10.0)
[2022-07-24 07:00] LABS: ALBUMIN 3.6 g/dl (3.4-5.0); CALCIUM 9.4 mg/dL (8.5-10.1)
[2022-07-24 07:01] LABS: BLOOD UREA NITROGEN 11.5 mg/dL (7-18)
[2022-07-24 07:03] LABS: CREATININE 0.7 mg/dL (0.55-1.3)
[2022-07-24 07:05] LABS: BILIRUBIN,TOTAL 0.4 mg/dL (0.2-1); TOT PROT 7.1 g/dl (6.4-8.2)
[2022-07-24] MEDS ORDERED: SODIUM CHLORIDE 0.9% 500 ML INFUS.BAG IV ONE (07:36)
[2022-07-24] MEDS ORDERED: ACETAMINOPHEN 1000 MG/100 ML BAG IVPB ONE (12:58)
[2022-07-24] MEDS ORDERED: ACETAMINOPHEN INJECTION 100 ML IVPB ONE (13:02)
[2022-07-24 13:31] VITALS: BP 140/80; PULSE 71; RESP 18; TEMP 98.8
== END 2022-07-24 13:39 | disposition home or self-care (01) ==
LOC: FER 05:03
PROC: 3E033NZ Introduction of Analgesics, Hypnotics, Sedatives into Peripheral Vein, Percutaneous Approach (ICD-10-PCS; principal; 2022-07-24)
PROC: 3E0337Z Introduction of Electrolytic and Water Balance Substance into Peripheral Vein, Percutaneous Approach (ICD-10-PCS; 2022-07-24)
DX: K92.1 Melena (principal); Z20.822 Contact with and (suspected) exposure to COVID-19
CPT/HCPCS: 0241U-QW; 36415; 74177-TC; 80053; 81003; 82550; 83605; 83690; 84484; 85027; 85610; 86850; 86900; 86901; 93005; 99285-25